=== PATIENT | male | born 1965 | race Caucasian/White ===

== ENCOUNTER 2018-10-21 | Inpatient (IN) | payer SELFPAY ==
[~2018-10-21] VITALS: Ht 177.8 cm; Wt 84.4 kg
[2018-10-21] VITALS (7 sets, daily range): BP systolic 166–216; BP diastolic 79–151
[2018-10-21 00:51] LABS: BASOPHIL % 0.8 % (0-2); PLATELET COUNT 185 x10^3mcL (130-400)
[2018-10-21 00:53] LABS: RED CELL DISTRIBUTION WIDTH 16.8 % (11.5-14.5)
[2018-10-21] MEDS ORDERED: METOPROLOL SUCC50 M2 PO (00:58)
[2018-10-21] MEDS ORDERED: BUMETANIDE1 MG PO (01:00)
[2018-10-21] MEDS ORDERED: OLMESARTAN MEDO40 MG PO (01:01)
[2018-10-21 01:15] LABS: ALBUMIN 3.5 g/dL (3.4-5.0); BILIRUBIN TOTAL 0.3 mg/dL (0.20-1.00); CALCIUM 7.4 mg/dL (8.5-10.1); CARBON DIOXIDE 22.5 mmol/L (21-32); POTASSIUM SERUM 4.4 mmol/L (3.5-5.1); TOTAL PROTEIN, SERUM 6.9 g/dL (6.4-8.2)
[2018-10-21 01:19] LABS: CREATININE SERUM 8.7 mg/dL (0.7-1.3)
[2018-10-21 02:39] LABS: CHOLESTEROL/HDL RATIO 3.1; MAGNESIUM 2.5 mg/dL (1.8-2.4); PHOSPHOROUS 7.1 mg/dL (2.5-4.9)
[2018-10-21 02:59] LABS: FREE T4 1.08 ng/dL (0.76-1.46); FREE THYROXINE INDEX 2.9 ug/dL (1.4-4.5); T4(THYROXINE) 7.7 ug/dL (4.7-13.3)
[2018-10-21 03:18] LABS: T3 TOTAL 0.47 ng/mL
[2018-10-21 06:19] LABS: CALCIUM 7.4 mg/dL (8.5-10.1); CARBON DIOXIDE 19.6 mmol/L (21-32); MAGNESIUM 2.4 mg/dL (1.8-2.4); POTASSIUM SERUM 4.6 mmol/L (3.5-5.1)
[2018-10-21 06:22] LABS: BASOPHIL % 0.5 % (0-2); PLATELET COUNT 146 x10^3mcL (130-400)
[2018-10-21 06:25] LABS: RED CELL DISTRIBUTION WIDTH 16.8 % (11.5-14.5)
[2018-10-21 06:25] LABS: UA SPECIFIC GRAVITY 1.015 (1.005-1.035); microscopic required? YES; urine erythrocyte 1+ (NEGATIVE)
[2018-10-21 06:27] LABS: CREATININE SERUM 8.8 mg/dL (0.7-1.3)
[2018-10-21 06:33] LABS: AMPHETAMINE QUAL UR NONE DETECTED (See below)
[2018-10-22 04:00] VITALS: BP 159/96
[2018-10-22 05:28] LABS: BASOPHIL % 0.3 % (0-2); PLATELET COUNT 144 x10^3mcL (130-400)
[2018-10-22 05:30] LABS: CARBON DIOXIDE 18.9 mmol/L (21-32); MAGNESIUM 2.1 mg/dL (1.8-2.4); PHOSPHOROUS 5.8 mg/dL (2.5-4.9); POTASSIUM SERUM 3.8 mmol/L (3.5-5.1)
[2018-10-22 05:31] LABS: RED CELL DISTRIBUTION WIDTH 16.3 % (11.5-14.5)
[2018-10-22 05:32] LABS: rbc morphology (normal/abnorm) ABNORMAL (NORMAL)
[2018-10-22 07:35] VITALS: BP 149/78
[2018-10-22 12:04] VITALS: BP 153/102
[2018-10-22 13:29] LABS: IRON 27 ug/dL (65-170); TOTAL IRON BINDING CAPACITY 210 ug/dL (250-450)
[2018-10-22 15:05] VITALS: BP 154/83
[2018-10-22 19:30] VITALS: BP 155/78
[2018-10-23] VITALS (7 sets, daily range): BP systolic 96–139; BP diastolic 57–86
[2018-10-23 05:34] LABS: BASOPHIL % 0.4 % (0-2); PLATELET COUNT 144 x10^3mcL (130-400)
[2018-10-23 05:39] LABS: CALCIUM 7.5 mg/dL (8.5-10.1); CARBON DIOXIDE 20.5 mmol/L (21-32); PHOSPHOROUS 6.4 mg/dL (2.5-4.9); POTASSIUM SERUM 4.3 mmol/L (3.5-5.1)
[2018-10-23 05:47] LABS: RED CELL DISTRIBUTION WIDTH 16.1 % (11.5-14.5)
[2018-10-23 05:59] LABS: CREATININE SERUM 9.6 mg/dL (0.7-1.3)
[2018-10-23 07:45] LABS: IRON 14 ug/dL (65-170); TOTAL IRON BINDING CAPACITY 184 ug/dL (250-450)
[2018-10-23 09:09] LABS: CALCIUM 7.8 mg/dL (8.7-10.2)
[2018-10-23 10:33] LABS: RED BLOOD CELLS 2.23 M/mm3 (4.52-5.90)
[2018-10-24] VITALS (7 sets, daily range): BP systolic 140–162; BP diastolic 77–92
[2018-10-24 06:58] LABS: CALCIUM 7.6 mg/dL (8.5-10.1); CARBON DIOXIDE 27.1 mmol/L (21-32); MAGNESIUM 1.8 mg/dL (1.8-2.4); PHOSPHOROUS 4.5 mg/dL (2.5-4.9); POTASSIUM SERUM 3.1 mmol/L (3.5-5.1)
[2018-10-24 09:49] LABS: BASOPHIL % 0.3 % (0-2); PLATELET COUNT 160 x10^3mcL (130-400); RED CELL DISTRIBUTION WIDTH 15.5 % (11.5-14.5)
[2018-10-25] VITALS (7 sets, daily range): BP systolic 148–172; BP diastolic 85–99
[2018-10-26 05:54] VITALS: BP 148/87
[2018-10-26 06:29] LABS: BASOPHIL % 0.7 % (0-2); PLATELET COUNT 196 x10^3mcL (130-400)
[2018-10-26 06:50] LABS: CALCIUM 8.5 mg/dL (8.5-10.1); CARBON DIOXIDE 24.5 mmol/L (21-32); MAGNESIUM 1.8 mg/dL (1.8-2.4); PHOSPHOROUS 5.2 mg/dL (2.5-4.9); POTASSIUM SERUM 3.6 mmol/L (3.5-5.1)
[2018-10-26 06:54] LABS: RED CELL DISTRIBUTION WIDTH 15.5 % (11.5-14.5)
[2018-10-26 07:11] LABS: CREATININE SERUM 6.3 mg/dL (0.7-1.3)
[2018-10-26 08:50] VITALS: BP 152/91
[2018-10-26 13:29] VITALS: BP 152/90
[2018-10-26 17:37] VITALS: BP 157/88
[2018-10-26 20:43] VITALS: BP 156/91
[2018-10-27 05:24] VITALS: BP 145/85
[2018-10-27 06:53] LABS: CALCIUM 8.6 mg/dL (8.5-10.1); CARBON DIOXIDE 23.1 mmol/L (21-32); PHOSPHOROUS 5.9 mg/dL (2.5-4.9); POTASSIUM SERUM 4.1 mmol/L (3.5-5.1)
[2018-10-27 06:55] LABS: CREATININE SERUM 7.4 mg/dL (0.7-1.3)
[2018-10-27 08:52] VITALS: BP 156/86
[2018-10-27 10:45] LABS: BASOPHIL % 0.1 % (0-2); PLATELET COUNT 236 x10^3mcL (130-400)
[2018-10-27 13:26] VITALS: BP 147/87
[2018-10-27 16:26] VITALS: BP 146/83
[2018-10-27 21:27] VITALS: BP 152/81
[2018-10-28] VITALS (7 sets, daily range): BP systolic 144–170; BP diastolic 80–96
[2018-10-28 06:45] LABS: CALCIUM 8.4 mg/dL (8.5-10.1); CARBON DIOXIDE 27.5 mmol/L (21-32); MAGNESIUM 2.1 mg/dL (1.8-2.4); PHOSPHOROUS 4.8 mg/dL (2.5-4.9)
[2018-10-28 06:47] LABS: CREATININE SERUM 5.6 mg/dL (0.7-1.3)
[2018-10-28 08:15] LABS: BASOPHIL % 0.3 % (0-2); PLATELET COUNT 258 x10^3mcL (130-400); RED CELL DISTRIBUTION WIDTH 14.9 % (11.5-14.5)
[2018-10-29 05:18] VITALS: BP 159/88
[2018-10-29 08:06] LABS: BASOPHIL % 0.2 % (0-2); PLATELET COUNT 239 x10^3mcL (130-400); RED CELL DISTRIBUTION WIDTH 15.2 % (11.5-14.5)
[2018-10-29 08:14] LABS: CALCIUM 8.2 mg/dL (8.5-10.1); CARBON DIOXIDE 27.9 mmol/L (21-32); MAGNESIUM 2.1 mg/dL (1.8-2.4); POTASSIUM SERUM 3.7 mmol/L (3.5-5.1)
[2018-10-29 08:20] LABS: CREATININE SERUM 5.3 mg/dL (0.7-1.3)
[2018-10-29 09:45] VITALS: BP 155/80
[2018-10-29 12:53] VITALS: BP 159/92
[2018-10-29 13:30] LABS: calcium (part of PTHIC) 7.8 mg/dL
[2018-10-29 16:09] VITALS: BP 146/83
[2018-10-29 21:12] VITALS: BP 157/91
[2018-10-30] VITALS (9 sets, daily range): BP systolic 139–175; BP diastolic 71–97
[2018-10-30 06:48] LABS: CALCIUM 8.1 mg/dL (8.5-10.1); CARBON DIOXIDE 28.4 mmol/L (21-32); MAGNESIUM 1.9 mg/dL (1.8-2.4); PHOSPHOROUS 4.6 mg/dL (2.5-4.9)
[2018-10-30 06:49] LABS: CREATININE SERUM 4.6 mg/dL (0.7-1.3)
[2018-10-31 05:36] VITALS: BP 157/81
[2018-10-31 06:36] LABS: CALCIUM 7.9 mg/dL (8.5-10.1); CARBON DIOXIDE 26.7 mmol/L (21-32); MAGNESIUM 2.1 mg/dL (1.8-2.4); PHOSPHOROUS 5.2 mg/dL (2.5-4.9); POTASSIUM SERUM 3.7 mmol/L (3.5-5.1)
[2018-10-31 06:53] LABS: BASOPHIL % 0.2 % (0-2); PLATELET COUNT 225 x10^3mcL (130-400); RED CELL DISTRIBUTION WIDTH 14.7 % (11.5-14.5)
[2018-10-31 07:27] LABS: CREATININE SERUM 5.9 mg/dL (0.7-1.3)
[2018-10-31 09:24] VITALS: BP 160/91
[2018-10-31 14:00] LABS: CALCIUM 8.1 mg/dL (8.5-10.1); CARBON DIOXIDE 30.8 mmol/L (21-32); MAGNESIUM 1.9 mg/dL (1.8-2.4); PHOSPHOROUS 3.3 mg/dL (2.5-4.9); POTASSIUM SERUM 3.7 mmol/L (3.5-5.1)
[2018-10-31 14:04] LABS: CREATININE SERUM 4.2 mg/dL (0.7-1.3)
[2018-10-31 14:59] VITALS: BP 154/95
[2018-10-31 17:05] VITALS: BP 160/95
[2018-10-31 18:21] VITALS: BP 156/86
[2018-10-31 22:44] VITALS: BP 160/95
[2018-11-01 04:50] VITALS: BP 155/84
[2018-11-01 08:57] VITALS: BP 145/81
[2018-11-01 16:45] VITALS: BP 159/95
[2018-11-01 21:10] VITALS: BP 163/92
[2018-11-01 23:00] VITALS: BP 145/85
[2018-11-02 09:19] VITALS: BP 144/99
[2018-11-02 10:35] VITALS: BP 164/90
[2018-11-02 16:28] VITALS: BP 156/89
[2018-11-02 20:55] VITALS: BP 157/95
[2018-11-03 05:16] VITALS: BP 156/87
[2018-11-03 06:43] LABS: CALCIUM 7.9 mg/dL (8.5-10.1); CARBON DIOXIDE 24.9 mmol/L (21-32); MAGNESIUM 2.3 mg/dL (1.8-2.4); PHOSPHOROUS 5.9 mg/dL (2.5-4.9); POTASSIUM SERUM 3.8 mmol/L (3.5-5.1)
[2018-11-03 06:45] LABS: CREATININE SERUM 7.5 mg/dL (0.7-1.3)
[2018-11-03 06:46] LABS: BASOPHIL % 1.3 % (0-2); PLATELET COUNT 224 x10^3mcL (130-400)
[2018-11-03 08:26] VITALS: BP 143/79
[2018-11-03 16:11] VITALS: BP 158/89
[2018-11-03 20:47] VITALS: BP 145/84
[2018-11-04] VITALS (7 sets, daily range): BP systolic 154–184; BP diastolic 80–103; Ht 177.8 cm; Wt 84.4 kg
[2018-11-04 06:30] LABS: CALCIUM 8.1 mg/dL (8.5-10.1); CARBON DIOXIDE 24.2 mmol/L (21-32); MAGNESIUM 1.9 mg/dL (1.8-2.4); PHOSPHOROUS 4.5 mg/dL (2.5-4.9); POTASSIUM SERUM 3.6 mmol/L (3.5-5.1)
[2018-11-04 06:47] LABS: CREATININE SERUM 5.4 mg/dL (0.7-1.3)
[2018-11-04 06:53] LABS: BASOPHIL % 1.1 % (0-2); PLATELET COUNT 204 x10^3mcL (130-400)
[2018-11-04 06:56] LABS: RED CELL DISTRIBUTION WIDTH 14.9 % (11.5-14.5)
[2018-11-05 06:20] VITALS: BP 160/87
[2018-11-05 06:36] LABS: PLATELET COUNT 203 x10^3mcL (130-400)
[2018-11-05 06:37] LABS: CALCIUM 7.7 mg/dL (8.5-10.1); CARBON DIOXIDE 24.6 mmol/L (21-32); MAGNESIUM 2.1 mg/dL (1.8-2.4); POTASSIUM SERUM 3.7 mmol/L (3.5-5.1); RED CELL DISTRIBUTION WIDTH 14.7 % (11.5-14.5)
[2018-11-05 06:54] LABS: CREATININE SERUM 6.5 mg/dL (0.7-1.3)
[2018-11-05 08:47] VITALS: BP 154/84
[2018-11-05] MEDS ORDERED: FERG PO (14:15)
[2018-11-05] MEDS ORDERED: ADA90 PO (14:16)
[2018-11-05] MEDS ORDERED: LOP50 PO (14:17)
[2018-11-05] MEDS ORDERED: APR50 PO (14:17)
[2018-11-05] MEDS ORDERED: L40 PO (14:19)
[2018-11-05 14:32] VITALS: BP 132/81
[2018-11-05 14:43] VITALS: BP 132/81
== END 2018-11-05 16:04 | disposition home or self-care (01) | DRG 682 ==
LOC: ED → MU 01:35 → IC 01:35 → DU 01:35 → IC 02:17 → DU 10-23 17:47 → MU 10-30 17:13
PROVIDERS: Emergency Medicine; Family Medicine; General Practice; Internal Medicine; Surgery; ADMIT Internal Medicine
PROC: 02HV33Z Insertion of Infusion Device into Superior Vena Cava, Percutaneous Approach (ICD-10-PCS; 2018-10-23)
PROC: 5A1D70Z Performance of Urinary Filtration, Intermittent, Less than 6 Hours Per Day (ICD-10-PCS; 2018-10-23)
PROC: B548ZZA Ultrasonography of Superior Vena Cava, Guidance (ICD-10-PCS; 2018-10-23)
PROC: 30233N1 Transfusion of Nonautologous Red Blood Cells into Peripheral Vein, Percutaneous Approach (ICD-10-PCS; principal; 2018-10-23 11:00)
PROC: 5A1D70Z Performance of Urinary Filtration, Intermittent, Less than 6 Hours Per Day (ICD-10-PCS; 2018-10-24)
PROC: 5A1D70Z Performance of Urinary Filtration, Intermittent, Less than 6 Hours Per Day (ICD-10-PCS; 2018-10-27)
PROC: 5A1D70Z Performance of Urinary Filtration, Intermittent, Less than 6 Hours Per Day (ICD-10-PCS; 2018-10-28)
PROC: 5A1D70Z Performance of Urinary Filtration, Intermittent, Less than 6 Hours Per Day (ICD-10-PCS; 2018-10-29)
PROC: 5A1D70Z Performance of Urinary Filtration, Intermittent, Less than 6 Hours Per Day (ICD-10-PCS; 2018-10-31)
PROC: 5A1D70Z Performance of Urinary Filtration, Intermittent, Less than 6 Hours Per Day (ICD-10-PCS; 2018-11-03)
PROC: 5A1D70Z Performance of Urinary Filtration, Intermittent, Less than 6 Hours Per Day (ICD-10-PCS; 2018-11-05)
DX: N17.9 Acute kidney failure, unspecified (principal); I50.43 Acute on chronic combined systolic (congestive) and diastolic (congestive) heart failure; J96.01 Acute respiratory failure with hypoxia; I13.2 Hypertensive heart and chronic kidney disease with heart failure and with stage 5 chronic kidney disease, or end stage renal disease; E87.1 Hypo-osmolality and hyponatremia; Q61.2 Polycystic kidney, adult type; I16.1 Hypertensive emergency; L03.116 Cellulitis of left lower limb; I42.9 Cardiomyopathy, unspecified; J81.1 Chronic pulmonary edema; N18.6 End stage renal disease; E83.39 Other disorders of phosphorus metabolism; R31.9 Hematuria, unspecified; E83.51 Hypocalcemia; I16.0 Hypertensive urgency; G47.33 Obstructive sleep apnea (adult) (pediatric); J44.9 Chronic obstructive pulmonary disease, unspecified; I11.0 Hypertensive heart disease with heart failure; D63.1 Anemia in chronic kidney disease; M10.9 Gout, unspecified; Z99.2 Dependence on renal dialysis; Z87.891 Personal history of nicotine dependence; Z91.19 Patient's noncompliance with other medical treatment and regimen; Z84.1 Family history of disorders of kidney and ureter
CPT/HCPCS: 83880; 84439; 86580; 90658; 90732; 94150; A4301; J0360; J0690; J1644; J1940; J2001; J2150; J2250; J2916; J3010; J3490; J7030; J7050; J7120; J7512; P9016; Q0092; Q0163